=== PATIENT | female | born 1985 | race Caucasian/White ===

== ENCOUNTER 2017-12-09 22:29 | Emergency (ER) | payer OTHER, SELFPAY ==
[2017-12-09 22:33] VITALS: BMI 15.4
[2017-12-09 22:36] VITALS: BP 105/72; PULSE 91; RESP 18; TEMP 36.9; O2SAT 98; BMI 15.4
--- NOTE | 2017-12-09 22:44 | XR_ITS ---
XR chest 2V HISTORY: Chest pain ITS.REASON: cp ORDERING PHYSICIAN: Scottie Thompson MD PATIENT AGE: 32 years COMPARISON: 02/09/2008 FINDINGS: The cardiomediastinal silhouette and pulmonary vascularity are within normal limits. The lungs are clear without infiltrates, suspicious nodules, or pleural effusions. No acute bony abnormalities. IMPRESSION: Negative chest, no acute finding
[2017-12-09 22:52] LABS: Basophils # 0.1 K/mm3 (0-0.2); Basophils % 0.6 % (0.1-2.0); Eosinophils # 0.2 K/mm3 (0.0-0.4); Eosinophils % 1.9 % (0.1-12.0); Hematocrit 45.9 % (37.0-47.0); Hemoglobin 14.9 g/dL (12.2-16.2); Lymphocytes # 3.1 K/mm3 (0.7-4.5); Lymphocytes % 29.6 K/mm3 (10-50); Mean Corpuscular HGB Conc 32.6 g/dL (31.8-35.4); Mean Corpuscular Hemoglobin 32.3 pg (27.0-31.2); Mean Corpuscular Volume 99.1 fl (81-99); Mean Platelet Volume 8.2 fl (7.4-10.4); Monocytes # 0.5 K/mm3 (0.1-1.0); Monocytes % 4.5 % (1.7-9.3); Neutrophils # 6.7 K/mm3 (1.8-7.8); Neutrophils % 63.5 % (37.0-80.0); Platelet Count 207 K/mm3 (142-424); Red Blood Count 4.63 M/mm3 (4.20-5.40); Red Cell Distribution Width 11.8 % (11.5-17.5); White Blood Count 10.6 K/mm3 (4.8-10.8)
[2017-12-09 23:13] LABS: Alanine Aminotransferase 26 U/L (12-78); Albumin/Globulin Ratio 1.2 (1.1-1.8); Alkaline Phosphatase 54 U/L (46-116); Anion Gap 12.1 mEq/L (5-15); Aspartate Amino Transferase 9 U/L (15-37); Bilirubin,Total 0.2 mg/dL (0.2-1.0); Blood Urea Nitrogen 5 mg/dL (7-18); Calcium 8.4 mg/dL (8.5-10.1); Carbon Dioxide 27 mmol/L (21.0-32.0); Chloride 103 mmol/L (98-107); Creatine Kinase 60 U/L (26-192); Creatinine Clearance Estimated 78 mL/min (0-300); Creatinine,Serum 0.67 mg/dL (0.55-1.02); Estimated Glomerular Filt Rate 102 ml/min (>60); GFR (African American) 123 ML/MIN (>60); Globulin 3.4 gm/dl (1.3-3.2); Glucose 99 mg/dL (74-106); Potassium 3.1 mmoL/L (3.5-5.1); Sodium 139 mmol/L (136-145); Total Protein,Serum 7.4 gm/dL (6.4-8.2); Troponin I < 0.02 ng/ml (0.00-0.06)
[2017-12-09 23:14] LABS: CKMB Relative Index 0.8 U/L (0-4.0); Creatine Kinase MB < 0.5 mg/ml (0.0-3.6)
--- NOTE | 2017-12-09 23:38 | [facility]H.EDCP ---
ED Disposition Clinical Impression: Chest pain Qualifiers: Chest pain type: unspecified Qualified Code(s): R07.9 - Chest pain, unspecified Disposition: Home, Self-Care Condition on Discharge: Good Instructions: DI for Atypical Chest Pain Additional Instructions: see pcp for follow up Referrals: Scottie Thompson MD [Primary Care Provider] - - Critical Care Critical Care Time: No Attestation: On 12/09/17, the high probability of a clinically significant, sudden or life threatening deterioration of the following system(s) required my full and direct attention, intervention and personal management. The time I documented below is in addition to time spent performing reported procedures but includes the following listed in this critical care notation. Medical Decision Making - Medical Records Medical records reviewed: Yes: I reviewed the patient's medical records. Vital Signs: 12/09/17 22:36 Temperature 98.4 F Temperature Source Oral Pulse Rate [Right Radial] 91 H Respiratory Rate 18 Blood Pressure [Right Arm] 105/72 Blood Pressure Mean [Right Arm] 83 Blood Pressure Source [Right Arm] Automatic Cuff Blood Pressure Position [Right Arm] Supine 02 Sat by Pulse Oximetry 98 Oxygen Delivery Method Room Air - Lab Data Lab results reviewed: Yes: I reviewed the patient's lab results. Lab Results 12/09/17 22:30: WBC 10.6, RBC 4.63, Hgb 14.9, Hct 45.9, MCV 99.1 H, MCH 32.3 H, MCHC 32.6, RDW 11.8, Plt Count 207, MPV 8.2, Neut % (Auto) 63.5, Lymph % (Auto) 29.6, Daniels % (Auto) 4.5, Eos % (Auto) 1.9, Baso % (Auto) 0.6, Neut # (Auto) 6.7, Lymph # (Auto) 3.1, Daniels # (Auto) 0.5, Eos # (Auto) 0.2, Baso # (Auto) 0.1 12/09/17 22:30: Sodium 139, Potassium 3.1 L, Chloride 103, Carbon Dioxide 27, Anion Gap 12.1, BUN 5 L, Creatinine 0.67, Estimated Creat Clear 78, Estimated GFR 102, Est GFR ( Amer) 123, Glucose 99, Calcium 8.4 L, Total Bilirubin 0.2, AST 9 L, ALT 26, Alkaline Phosphatase 54, Total Creatine Kinase 60, CK-MB (CK-2) < 0.5, CK-MB (CK-2) Rel Index 0.8, Troponin I < 0.02, Total Protein 7.4, Albumin 4.0, Globulin 3.4 H, Albumin/Globulin Ratio 1.2 Result diagrams: 12/09/17 22:30 12/09/17 22:30 Orders (Tests/Meds): ORDERS Category Date Time Status CXR 2 view (NOT portable) [XR chest 2V] Stat Exams 12/09/17 22:44 Taken XR chest portable Stat Exams 12/09/17 22:34 Stop Req ECG Request by /Camacho Stat Y 12/09/17 22:34 Ordered - Radiology Data #1 Image(s): Chest Image Reviewed: Yes I reviewed the patient's radiology image Preliminary Findings: Normal/NAD - ECG Data Tracing #1 I reviewed this ECG and interpreted as documented below: Normal Sinus Rhythm: Yes Ischemic changes: non-specific ST-T wave changes - Jorge Inquiry Pt receiving controlled substance: No Chest Pain HPI - General Chief Complaint: Chest Pain Stated Complaint: chest pain Time Seen by Provider: 12/09/17 23:38 Mode of Arrival: EMS Source of Information: Patient, EMS, Medical Record Limitations: No Limitations Description of Symptoms (Recalled from ER Triage Doc. by RN): Pt report she was arguing with her sister and became lightheaded and started experiencing a stabbing chest pain - History of Present Illness HPI narrative: after emotional upset had chest pain MD complaint: chest pain Onset (ago): hour(s) Duration: now resolved Activity at onset: emotional stress event Pain location: substernal Severity: moderate - Related Data Home Medications Medication Instructions Recorded Confirmed Varenicline Tartrate [Chantix] 0.5 mg PO BID 12/09/17 12/09/17 buPROPion HCl [Wellbutrin 75mg 75 mg PO DAILY 12/09/17 12/09/17 Tablet] clonazePAM [Klonopin] 0.5 mg PO BID 12/09/17 12/09/17 Allergies Allergy/AdvReac Type Severity Reaction Status Date / Time codeine [CODEINE] Allergy Mild Verified 12/09/17 22:47 [facility] History I have reviewed the patient's past medical history: Yes Medical
--- NOTE | 2017-12-09 23:42 | ED_ITS ---
ED Disposition Clinical Impression: Chest pain Qualifiers: Chest pain type: unspecified Qualified Code(s): R07.9 - Chest pain, unspecified Disposition: Home, Self-Care Condition on Discharge: Good Instructions: DI for Atypical Chest Pain Additional Instructions: see pcp for follow up Referrals: Scottie Thompson MD [Primary Care Provider] - - Critical Care Critical Care Time: No Attestation: On 12/09/17, the high probability of a clinically significant, sudden or life threatening deterioration of the following system(s) required my full and direct attention, intervention and personal management. The time I documented below is in addition to time spent performing reported procedures but includes the following listed in this critical care notation. Medical Decision Making - Medical Records Medical records reviewed: Yes: I reviewed the patient's medical records. Vital Signs: 12/09/17 22:36 Temperature 98.4 F Temperature Source Oral Pulse Rate [Right Radial] 91 H Respiratory Rate 18 Blood Pressure [Right Arm] 105/72 Blood Pressure Mean [Right Arm] 83 Blood Pressure Source [Right Arm] Automatic Cuff Blood Pressure Position [Right Arm] Supine 02 Sat by Pulse Oximetry 98 Oxygen Delivery Method Room Air - Lab Data Lab results reviewed: Yes: I reviewed the patient's lab results. Lab Results 12/09/17 22:30: WBC 10.6, RBC 4.63, Hgb 14.9, Hct 45.9, MCV 99.1 H, MCH 32.3 H, MCHC 32.6, RDW 11.8, Plt Count 207, MPV 8.2, Neut % (Auto) 63.5, Lymph % (Auto) 29.6, Todd % (Auto) 4.5, Eos % (Auto) 1.9, Baso % (Auto) 0.6, Neut # (Auto) 6.7 , Lymph # (Auto) 3.1, Todd # (Auto) 0.5, Eos # (Auto) 0.2, Baso # (Auto) 0.1 12/09/17 22:30: Sodium 139, Potassium 3.1 L, Chloride 103, Carbon Dioxide 27, Anion Gap 12.1, BUN 5 L, Creatinine 0.67, Estimated Creat Clear 78, Estimated GFR 102, Est GFR ( Amer) 123, Glucose 99, Calcium 8.4 L, Total Bilirubin 0.2, AST 9 L, ALT 26, Alkaline Phosphatase 54, Total Creatine Kinase 60, CK-MB ( CK-2) < 0.5, CK-MB (CK-2) Rel Index 0.8, Troponin I < 0.02, Total Protein 7.4, Albumin 4.0, Globulin 3.4 H, Albumin/Globulin Ratio 1.2 Result diagrams: 12/09/17 22:30 12/09/17 22:30 Orders (Tests/Meds): ORDERS Category Date Time Status CXR 2 view (NOT portable) [XR chest 2V] Stat Exams 12/09/17 22:44 Taken XR chest portable Stat Exams 12/09/17 22:34 Stop Req ECG Request by /Camacho Stat Y 12/09/17 22:34 Ordered - Radiology Data #1 Image(s): Chest Image Reviewed: Yes I reviewed the patient's radiology image Preliminary Findings: Normal/NAD - ECG Data Tracing #1 I reviewed this ECG and interpreted as documented below: Normal Sinus Rhythm: Yes Ischemic changes: non-specific ST-T wave changes - Jorge Inquiry Pt receiving controlled substance: No Chest Pain HPI - General Chief Complaint: Chest Pain Stated Complaint: chest pain Time Seen by Provider: 12/09/17 23:38 Mode of Arrival: EMS Source of Information: Patient, EMS, Medical Record Limitations: No Limitations Description of Symptoms (Recalled from ER Triage Doc. by RN): Pt report she was arguing with her sister and became lightheaded and started experiencing a stabbing chest pain - History of Present Illness HPI narrative: after emotional upset had chest pain MD complaint: chest pain Onset (ago): hour(s) Duration: now resolved
[2017-12-09 23:50] VITALS: BP 110/70; PULSE 90; RESP 20; TEMP 36.8; O2SAT 97
== END 2017-12-09 23:50 | disposition home or self-care (01) ==
PROVIDERS: Emergency Provider Emergency Medicine; Family Provider Emergency Medicine; PCP Emergency Medicine
DX: R07.9 Chest pain, unspecified (principal); F41.8 Other specified anxiety disorders; F17.210 Nicotine dependence, cigarettes, uncomplicated
CPT/HCPCS: 71046; 80053; 82550; 82553; 84484; 85025; 93005; 99282

== ENCOUNTER → 2019-07-31 14:36 | Outpatient (CLI) | payer OTHER, SELFPAY ==
[2019-07-31 16:04] LABS: HCG,Quantitative 900 mIU/mL
== END ==
PROVIDERS: Visit Provider Nurse Practitioner Obstetrics & Gynecology
DX: Z34.90 Encounter for supervision of normal pregnancy, unspecified, unspecified trimester (principal)
CPT/HCPCS: 36415; 84702

== ENCOUNTER → 2019-09-06 10:35 | Outpatient (CLI) | payer OTHER, SELFPAY ==
--- NOTE | 2019-09-06 10:38 | US_ITS ---
PROCEDURE: US OB TRANSVAGINAL CLINICAL INDICATION: US OB Dates Follow-up subchorionic hemorrhage. COMPARISON: US OB TRANSVAGINAL from 08/27/2019 FINDINGS: An intrauterine gestational sac is present with a pole with a crown-rump length of 2.83 cm correlating to gestational age of 9 weeks 5 days. heart tones are present with an FHR of 165 bpm. Yolk sac is noted. The amnion and chorion of not yet fused. Adnexa are unremarkable. There is a persistent subchorionic area of decreased echogenicity and may represent a small subchorionic hemorrhage. IMPRESSION: Live IUP at 9 weeks 5 days with small subchorionic hemorrhage noted as described. Estimated due date by Ultrasound is 04/05/2020 Dictated by: Sher Burden MD 09/06/2019 12:58 Electronically signed by Sher Burden MD in [place] 09/06/2019 12:58
== END ==
PROVIDERS: PCP Emergency Medicine; Visit Provider Nurse Practitioner Obstetrics & Gynecology
DX: O26.841 Uterine size-date discrepancy, first trimester (principal)
CPT/HCPCS: 76817

== ENCOUNTER → 2019-09-06 11:36 | Outpatient (CLI) | payer OTHER, SELFPAY ==
[2019-09-06 11:54] LABS: Basophils % 0.5 % (0.1-2.0); Eosinophils # 0.1 K/mm3 (0.0-0.4); Eosinophils % 1.4 % (0.1-12.0); Hematocrit 41.4 % (37.0-47.0); Lymphocytes # 2.2 K/mm3 (0.7-4.5); Lymphocytes % 27.8 % (10-50); Mean Corpuscular HGB Conc 31.4 g/dL (31.8-35.4); Mean Corpuscular Hemoglobin 30.7 pg (27.0-31.2); Mean Corpuscular Volume 97.9 fl (81-99); Mean Platelet Volume 8.2 fl (7.4-10.4); Monocytes # 0.4 K/mm3 (0.1-1.0); Monocytes % 4.6 % (1.7-9.3); Neutrophils # 5.2 K/mm3 (1.8-7.8); Neutrophils % 65.7 % (37.0-80.0); Platelet Count 256 K/mm3 (142-424); Red Blood Count 4.22 M/mm3 (4.20-5.40); White Blood Count 7.9 K/mm3 (4.8-10.8)
[2019-09-07 21:12] LABS: HIV Screen 4th Generation wRfx Non Reactive (Non Reactive); Hepatitis B Surface Antigen Negative (Negative); Hepatitis C Antibody <0.1 s/co ratio (0.0-0.9); Rapid Plasma Reagin Ab Titer Non Reactive (NonRea<1:1)
== END ==
PROVIDERS: Visit Provider Nurse Practitioner Obstetrics & Gynecology
DX: Z34.90 Encounter for supervision of normal pregnancy, unspecified, unspecified trimester (principal); Z3A.01 Less than 8 weeks gestation of pregnancy
CPT/HCPCS: 36415; 85025; 86592; 86703; 86762; 86850; 87340; 87380; G0432

== ENCOUNTER → 2019-11-21 12:56 | Outpatient (CLI) | payer OTHER, SELFPAY ==
--- NOTE | 2019-11-21 13:06 | US_ITS ---
PROCEDURE: US OB /MATERNAL DETAIL CLINICAL INDICATION: 20 wk. ob/us COMPARISON: US OB TRANSVAGINAL from 09/06/2019 FINDINGS: There is a single live fetus present which is in breech presentation. heart and body motion noted. Cervix is closed and measures 3 cm. The placenta fundal and wraparound and grade 1 Complete survey performed and was unremarkable on the submitted images as in PACS. No discrete anomalies identified on survey imaging by technologist. Active fetus. Three-vessel cord with satisfactory umbilical cord insertion. 4- chamber heart noted. Survey of brain & ventricles Unremarkable. Face and neck survey unremarkable. Diaphragm and chest views unremarkable. Abdomen: Both kidneys noted and unremarkable. Stomach noted and satisfactory. Spine: Survey of the spine satisfactory with no anomalies identified nor imaged. Both arms and legs noted. Amniotic Fluid: Adequate. Maternal adnexa: No significant findings. Measurements: Average ultrasound age 20weeks. Gestational Age 20 weeks 4 days Estimated due date by ultrasound age 0604/09/2020. Estimated weight 314g BPD = 20weeks 2days OFD = 20 weeks 3 days HC = 19weeks 5days AC = 20weeks 1day FL = 19weeks 4days Growth Percentile= 12 percent% Heart Rate = 142bpm Cerebellum = 21weeks 1day Humerus = 19weeks 5days HC/AC is 1.14 CI is 0.78 FL/BPD is 0.65 FL/AC is 0.21 IMPRESSION: Live IUP with an average ultrasound age of 20 weeks and 0 days. All parameters correlate with no obvious anomalies. Please see above for detail Dictated by: Sher Burden MD 11/21/2019 17:19 Electronically signed by Sher Burden MD in [place] 11/21/2019 17:19
== END ==
PROVIDERS: PCP Emergency Medicine; Visit Provider Nurse Practitioner Obstetrics & Gynecology
DX: Z34.90 Encounter for supervision of normal pregnancy, unspecified, unspecified trimester (principal)
CPT/HCPCS: 76805; 76811

== ENCOUNTER → 2020-02-07 09:00 | Outpatient (CLI) | payer OTHER, SELFPAY ==
[2020-02-07 10:33] LABS: Glucose,Fasting 69 mg/dl (74-100)
[2020-02-07 10:48] LABS: Glucose 1 Hour 114 mg/dL (74-100)
== END ==
PROVIDERS: Visit Provider Nurse Practitioner Obstetrics & Gynecology
DX: Z34.90 Encounter for supervision of normal pregnancy, unspecified, unspecified trimester (principal)
CPT/HCPCS: 36415; 82951

== ENCOUNTER → 2020-02-28 14:10 | Outpatient (CLI) | payer OTHER, SELFPAY ==
--- NOTE | 2020-02-28 14:13 | US_ITS ---
PROCEDURE: US OB FOLLOW UP CLINICAL INDICATION: sga Small for gestational age COMPARISON: US OB /MATERNAL DETAIL from 11/21/2019 FINDINGS: There is a single live fetus present which is in cephalic presentation. The placenta is posterior and high in implantation and is grade 3. No evidence of previa. The cervix is closed and measures 3 cm transabdominal. Average ultrasound age is 32 weeks 4 days with estimated due date by ultrasound 04/20/2020. Estimated weight is 1917 g which is 3 percentile indicating intrauterine growth restriction. The following parameters are obtained: BPD 33 weeks 0 days, OFD 33 weeks 0 days, HC 32 weeks 5 days, AC 31 weeks 4 days, FL 33 weeks 0 days. All parameters correlate. No obvious anomalies demonstrated. STELLA is normal at 14 cm. Biophysical profile is 8 of 8 IMPRESSION: Live IUP at 32 weeks 4 days with an estimated weight 1917 g which is 3 percentile indicating intrauterine growth restriction/small for gestational age. All parameters correlate with no obvious anomalies. Normal amniotic fluid index of 14 cm with biophysical profile 8 of 8. Posterior grade 3 placenta Dictated by: Sher Burden MD 02/28/2020 17:01 Electronically signed by Sher Burden MD in [place] 02/28/2020 17:01
== END ==
PROVIDERS: PCP Emergency Medicine; Visit Provider Nurse Practitioner Obstetrics & Gynecology
DX: O36.5990 Maternal care for other known or suspected poor fetal growth, unspecified trimester, not applicable or unspecified (principal)
CPT/HCPCS: 76816; 76819

== ENCOUNTER → 2020-03-06 17:05 | Outpatient (CLI) | payer OTHER, SELFPAY | PROVIDERS: Visit Provider Nurse Practitioner Obstetrics & Gynecology | DX: Z34.90 Encounter for supervision of normal pregnancy, unspecified, unspecified trimester (principal) | CPT/HCPCS: 86403 ==

== ENCOUNTER 2020-03-15 05:36 | Inpatient (IN) | payer OTHER, SELFPAY ==
[2020-03-15 05:53] VITALS: BMI 20.5
[2020-03-15 06:00] VITALS: BP 122/78; PULSE 62; RESP 18; TEMP 36.7; O2SAT 100; BMI 20.5
[2020-03-15 06:29] LABS: Microscopic, Urine URINE MICROSCOPIC (MICROSCOPIC)
[2020-03-15 06:38] LABS: Appearance,Urine CLEAR (Clear); Bilirubin,Urine Negative (Negative); Blood, Urine TRACE-I (Negative); Color,Urine YELLOW (Yellow); Glucose,Urine (UA) Negative (Negative); Ketones,Urine Negative (Negative); Leukocyte Esterase,Urine Negative (Negative); Nitrate,Urine Negative (Negative); PH,Urine 6.5 (5.0-8.5); Protein,Urine 1+ (Negative); Specific Gravity, Urine 1.025 (1.005-1.030); Urobilinogen,Urine 0.2 EU/dl (0.2)
[2020-03-15 06:44] LABS: Basophils % 0.3 % (0.1-2.0); Eosinophils # 0.1 K/mm3 (0.0-0.4); Eosinophils % 1.3 % (0.1-12.0); Hematocrit 39.3 % (37.0-47.0); Hemoglobin 13.3 g/dL (12.2-16.2); Lymphocytes # 3.3 K/mm3 (0.7-4.5); Lymphocytes % 30.3 % (10-50); Mean Corpuscular HGB Conc 33.8 g/dL (31.8-35.4); Mean Corpuscular Hemoglobin 33.3 pg (27.0-31.2); Mean Corpuscular Volume 98.6 fl (81-99); Mean Platelet Volume 9.6 fl (7.4-10.4); Monocytes # 0.5 K/mm3 (0.1-1.0); Monocytes % 4.9 % (1.7-9.3); Neutrophils # 6.9 K/mm3 (1.8-7.8); Neutrophils % 63.2 % (37.0-80.0); Platelet Count 234 K/mm3 (142-424); Red Blood Count 3.99 M/mm3 (4.20-5.40); Red Cell Distribution Width 13.1 % (11.5-17.5)
[2020-03-15 06:53] LABS: Amphetamine/Metha Screen,Urine Negative ng/ml (<1000)
[2020-03-15 06:54] LABS: Barbiturates Screen,Urine Negative ng/ml (<200)
[2020-03-15 06:55] LABS: Benzodiazepines Screen,Urine Negative ng/ml (<200); Cannabinoid Screen,Urine Negative ng/ml (<50)
[2020-03-15 06:56] LABS: Cocaine Screen,Urine Negative ng/ml (<300); Methadone Screen,Urine Negative ng/ml (<300)
[2020-03-15 06:57] LABS: Opiate Screen,Urine Negative ng/ml (<300)
[2020-03-15 06:58] LABS: Phencyclidine Screen,Urine Negative ng/ml (<25)
[2020-03-15 07:00] LABS: Coronavirus 19 IgG Antibody Negative (Negative); Coronavirus 19 IgM Antibody Negative (Negative)
[2020-03-15 07:12] LABS: Bacteria,Urine 3+ /lpf
[2020-03-15 07:26] LABS: Chloride 109 mmol/L (98-107)
[2020-03-15 07:27] LABS: Potassium 3.9 mmoL/L (3.5-5.1); Sodium 135 mmol/L (136-145)
[2020-03-15 07:29] LABS: Blood Urea Nitrogen 11 mg/dl (7-17)
[2020-03-15 07:30] LABS: Anion Gap 10.9 mEq/L (5-15); Calcium 8.4 mg/dl (8.4-10.2); Carbon Dioxide 19 mmol/L (22.0-30.0); Creatinine Clearance Estimated 114 mL/min (50-200); Estimated Glomerular Filt Rate 114 ml/min (>60); GFR (African American) 138 ML/MIN (>60); Glucose 82 mg/dl (74-100)
[2020-03-15 08:00] VITALS: BP 123/81; PULSE 65; RESP 18; TEMP 36.7; O2SAT 98
--- NOTE | 2020-03-15 09:47 | HMH.LABNOT ---
Labor Note - Subjective: Date: 03/15/20 Time: 08:30 regular contraction - Objective: NST:: Reactive Contractions:: every 2-3 minutes Cervical Dilation:: 2 Effacement:: 75% Station: 0 Membranes: artificially ruptured Comment:: I ruptured membranes and there was clear fluid. - Fetus: Monitoring?: Yes monitoring type:: External - Assessment: Labor progressing?: Yes Cephalopelvic disproportion?: No Patient Problems: All Active Problems (Acute) Pelvic pain (Acute) Right lower quadrant abdominal pain affecting (Acute) Threatened miscarriage (Acute) - Plan: Anesthesia for epidural?: No Continue to labor down?: Yes Plan for ?: No Continue to monitor?: Yes Start pushing?: No Comment:: She has a very small for gestational age infant. She is 37 weeks. As result of that we have elected to deliver her. The fluid was also marginal.
--- NOTE | 2020-03-15 09:51 | HMH.OBAPHP ---
OB - H&P: HPI Antepartum - History of Present Illness Chief complaint: She has severe IUGR. History of present illness: She is a 34-year-old 6 para 4 aborta 1 who was 37 weeks gestational age. She has a very small for gestational age with marginal fluid. She is a and 8 years ago had a for breech presentation. She requested vaginal delivery. We discussed the risks and benefits of . She is a smoker. She has had small babies in the past. I did an ultrasound and the baby was less than the fifth centile with an amniotic fluid index of only 6. As a result of that we offered her delivery. - History of Present Criteria for establishing EDC:: LMP confirmed by 1st trimester US care: good care Ultrasounds: normal 1st trimester US, normal mid trimester US Obstetrical complications: growth restriction Medical complications: none [facility] History I have reviewed the patient's past medical history: Yes Medical History: Reports:: Anxiety, Depression Denies:: Cancer, Diabetes Mellitus Type 1, Diabetes Mellitus Type 2, MRSA *Have you ever received a pneumonia vaccine?: No *Have you received a flu vaccine this season?: No Other Surgeries: Yes: , Dilation and Curettage Amputation: No Fractures: No - *Social History Smoking Status: Current every day smoker Tobacco Type: cigarettes # Packs/Day (cigarettes): 1 Alcohol Intake: never Substance Use Type: denies use *Occupational Status:: unemployed Housing: house Household Members: spouse, children *Travel in the last 8 weeks: None - Psychiatric History Pschychiatric History:: Reports:: Anxiety, Depression Family Hx:: Cancer, Diabetes, Asthma Para: 4 Review of Systems - Review of Systems Review of systems:: pertinent systems reviewed and negative unless documented below Meds Home Medications Medication Instructions Recorded Confirmed Type prenat.vits,mkie,qgy-exaa-monsi 1 tab PO DAILY 09/04/19 03/15/20 History RX: buPROPion HCL [Bupropion Xl] 150 mg PO TID 03/15/20 03/15/20 History Allergies Allergy/AdvReac Type Severity Reaction Status Date / Time codeine [CODEINE] Allergy Mild Verified 03/13/20 09:50 OB - H&P: Exam - Physical Exam Vital signs: Temp Pulse Resp BP Pulse Ox 98.0 F 65 18 123/81 98 03/15/20 08:00 03/15/20 08:00 03/15/20 08:00 03/15/20 08:00 03/15/20 08:00 - Constitutional no acute distress - Routine HEENT Exam Head: Present: normocephalic Eye: Present: EOMI, PERRL ENT: Present: mucous membranes moist - Routine Neck Exam Present: supple, full ROM - Routine Respiratory Exam Absent: accessory muscle use (good air entry bilaterally), respiratory distress, wheezes, crackles - Routine Cardiovascular Exam Present: RRR. Absent: murmur - Routine Abdominal Exam Present: soft, normoactive bowel sounds. Absent: tenderness, distended, guarding - Routine Rectal Exam Patient deferred: visual exam, digital exam - Routine Exam Patient deferred: external exam, groin exam, perineal exam - Routine Extremities Exam Present: full ROM. Absent: cyanosis, edema - Routine Skin Exam Present: intact. Absent: cyanosis - Routine Neurological Exam Present: alert, oriented X3 - Routine Psychiatric Exam Present: normal affect OB - Results - Labs Labs: Short CBC 03/15/20 Range/Units 06:05 WBC 11.0 H (4.8-10.8) K/mm3 Hgb 13.3 (12.2-16.2) g/dL Hct 39.3 (37.0-47.0) % Plt Count 234 (142-424) K/mm3 BMP 03/15/20 06:05 Sodium 135 L Potassium 3.9 Chloride 109 H Carbon Dioxide 19 L BUN 11 Creatinine 0.60 Glucose 82 Calcium 8.4 Urine 03/15/20 Range/Units 06:05 Urine Color Yellow (Yellow) Urine Appearance Clear (Clear) Urine pH 6.5 (5.0-8.5) Ur Specific [place] 1.025 (1.005-1.030) Urine Protein 1+ (Negative) Urine Glucose (UA) Negative (Negative) OB - A/P Antepartum (1) IUGR (
--- NOTE | 2020-03-15 10:51 | HMH.LABNOT ---
Labor Note - Subjective: Date: 03/15/20 Time: 10:51 regular contraction - Objective: NST:: Reactive Contractions:: every 2-3 minutes Effacement:: 100% Station: 0 Membranes: artificially ruptured - Fetus: Monitoring?: Yes monitoring type:: External - Assessment: Labor progressing?: Yes Patient Problems: All Active Problems IUGR (intrauterine growth restriction) affecting care of mother (Acute) Oligohydramnios (Acute) (Acute) Pelvic pain (Acute) Right lower quadrant abdominal pain affecting (Acute) Threatened miscarriage (Acute) - Plan: Anesthesia for epidural?: No Continue to labor down?: Yes Plan for ?: No Continue to monitor?: Yes Start pushing?: No Comment:: She continues to do well. She is progressing. The nonstress test is reactive. She does not have any bleeding. Baby looks good. We will continue on.
--- NOTE | 2020-03-15 12:06 | HMH.LABNOT ---
Labor Note - Subjective: Date: 03/15/20 Time: 12:06 irregular contractions - Objective: NST:: Reactive Contractions:: every 2-3 minutes Cervical Dilation:: 6 Effacement:: 100% Station: +1 Membranes: artificially ruptured - Fetus: Monitoring?: Yes monitoring type:: External - Assessment: Labor progressing?: Yes Cephalopelvic disproportion?: No Patient Problems: All Active Problems IUGR (intrauterine growth restriction) affecting care of mother (Acute) Oligohydramnios (Acute) (Acute) Pelvic pain (Acute) Right lower quadrant abdominal pain affecting (Acute) Threatened miscarriage (Acute) - Plan: Anesthesia for epidural?: No Continue to labor down?: Yes Plan for ?: No Continue to monitor?: Yes Start pushing?: No
--- NOTE | 2020-03-15 12:37 | P.PCN_ITS ---
- Delivery Note Delivery Date:: 03/15/20 Delivery Time:: 12:24 Anesthesia Type: None Was labor medically induced?: Yes Induction method: per pitocin protocol Gestational age (weeks): 37 Infant delivered prior to 39 weeks?: Yes Justification for early elective delivery:: IUGR Gender: Female at 1 minute: 9 at 5 minutes: 9 Delivery Procedure:: She is a 34-year-old 6 para 4 who was 37 weeks gestational age. She has a small for gestational age and when we did an ultrasound a couple days ago it was noted that there was marginal fluid as well. The baby was less than the third centile. Given the fact that the baby was so small and the fact that the fluid was marginal we elected to bring her in for induction of labor at term. She was started on IV oxytocin had her membranes ruptured. She progressed to full dilation and delivered spontaneously a liveborn female child at 12:24 PM in the afternoon of March 15, 2020. On deliver the head the anterior shoulder rapidly delivered followed by the rest of the infant's body atraumatically. The baby was vigorous and crying so we elected to allow the cord to continue to pulsate. After 1 minute the cord was doubly clamped and cut and the infant was handed off to the nurses who assigned Apgars of 9 at 1 and 9 at 5 minutes. We then obtained cord blood as well as cord pH. The pH was 7.32. Shortly after delivery Dr. Bonner was in attendance with the baby. She received IV oxytocin and using gentle traction the cord and countertraction the fundus I was able to easily deliver the placenta intact at 1230. Had a normal three-vessel cord. There were no perineal or vaginal lacerations. She has a positive blood, she is rubella immune and was group B streptococcus negative. Her sap fico architect Dr. Bonner. Estimated blood loss was 200 cc. Placental Delivery Description: Spontaneous
[2020-03-15 12:38] LABS: Cord Blood PH 7.32 (7.35-7.45)
[2020-03-16 06:03] LABS: Hematocrit 35.5 % (37.0-47.0)
[2020-03-16 06:13] LABS: Hemoglobin 11.9 g/dL (12.2-16.2)
--- NOTE | 2020-03-16 10:05 | HMH.ACPN2 ---
Internal Medicine - PN: Subj *Date: 03/16/20 *Time: 10:05 Interval history: She is doing well this morning. She is eating and drinking and ambulating. She is breast-feeding. Her lochia is normal. Exam Vital signs and Labs for Last 24 Hours: Temp Pulse Resp BP Pulse Ox 98.0 F 65 18 123/81 98 03/15/20 08:00 03/15/20 08:00 03/15/20 08:00 03/15/20 08:00 03/15/20 08:00 Laboratory Results - last 24 hr 03/15/20 12:24: Cord ABG pH 7.32 L 03/16/20 05:46: Hgb 11.9 L D, Hct 35.5 L I & O for Last 24 hours: Intake & Output 03/13/20 03/14/20 03/15/20 03/16/20 11:59 11:59 11:59 11:59 Weight 120 lb Microbiology Reports for the Last 24 Hours: Microbiology 03/15/20 06:05 Urine,Clean Catch Urine Culture - Preliminary NO GROWTH AFTER 24 HOURS - Constitutional no acute distress - *Routine HEENT Exam Head: Present: normocephalic Eye: Present: EOMI, PERRL ENT: Present: mucous membranes moist Assessment and Plan (1) IUGR (intrauterine growth restriction) affecting care of mother Current visit: Yes Status: Acute Category: Medical Code(s): O36.5990 - Maternal care for other known or suspected poor growth, unspecified trimester, not applicable or unspecified (2) Oligohydramnios Current visit: Yes Status: Acute Category: Medical Code(s): O41.00X0 - Oligohydramnios, unspecified trimester, not applicable or unspecified - Assessment and plan all Dx Assessment and Plan for all problems:: She is doing well. She is breast-feeding. Her lochia is normal. We will plan to send her home tomorrow.
[2020-03-16 16:00] VITALS: BP 129/59; PULSE 64; RESP 18; TEMP 36.7; O2SAT 99
[2020-03-16 19:43] VITALS: BP 115/70; PULSE 70; RESP 16; TEMP 36.7; O2SAT 98
[2020-03-17 05:11] VITALS: BP 131/86; PULSE 64; RESP 16; TEMP 37.1
[2020-03-17 08:00] VITALS: BP 109/71; PULSE 76; RESP 20; TEMP 36.7; O2SAT 99
--- NOTE | 2020-03-17 11:24 | P.DS_ITS ---
General - General Admission date:: 03/15/20 Discharge date: 03/17/20 HPI HPI: She is a 34-year-old 6 now para 5 aborta 1 who was 37 weeks gestational age. She had a small for gestational age infant and previous section. She was brought in for induction of labor. Hospital Course Hospital Course: She was started on IV oxytocin had her membranes ruptured. She progressed to full dilation and delivered spontaneously a liveborn female child at 12:24 PM in the afternoon of March 15, 2020. The baby weighed 4 pounds 3 ounces and had Apgars of 9 at 1 minute and 9 at 5 minutes. pH was 7.32. She has done well and has remained afebrile throughout her hospitalization. She is eating and drinking and ambulating. She is breast- feeding. Her lochia is normal. There were no perineal or vaginal lacerations. She has a positive blood, she is rubella immune and was group B streptococcus negative. Her marine engineer cpvec is Dr. Bonner. She is discharged home to follow-up with me in approximately 2 weeks time. She will continue with her vitamins and iron. She was given the usual instructions with respect to limiting her activity, driving and sexual activity. Her condition on discharge is stable and improved. Rhogam Administration: Not Indicated Objective Vital signs: Temp Pulse Resp BP Pulse Ox 98.0 F 76 20 109/71 L 99 03/17/20 08:00 03/17/20 08:00 03/17/20 08:00 03/17/20 08:00 03/17/20 08:00 no acute distress - *Routine HEENT Exam Head: Present: normocephalic Eye: Present: EOMI, PERRL ENT: Present: mucous membranes moist DS: Diagnosis - Discharge Diagnosis (1) IUGR (intrauterine growth restriction) affecting care of mother Status: Acute (2) Oligohydramnios Status: Acute (3) , delivered Status: Acute Discharge Plan - Patient Discharge Instructions ACTIVITY: No heavy lifting DIET: continue same diet Additional Instructions: Nothing in the vagina for 6 weeks, and no heavy lifting. Patient Instructions: Depression, Hemorrhage, DI for Labor and Delivery, Vaginal , DI for Pre-eclampsia, [facility] Post Discharge Instructions, Preventing the Spread of Coronavirus Discharge Instructions - Follow up Plan Follow up with: Cornelius Estrada MD [Staff Physician] - Disposition: Home, Self-Senior Living Medications: Home Medications Medication Instructions Recorded Confirmed Type prenat.vits,mike,[id number] 1 tab PO DAILY 09/04/19 03/15/20 History buPROPion HCL [Bupropion Xl] 150 mg PO DAILY 03/15/20 03/15/20 History Oxycodone HCl/Acetaminophen 1 tab PO Q6H PRN #14 tablet 03/17/20 Rx [Percocet 5/325mg tablet] Prescriptions/Medication Reconciliation: New Oxycodone HCl/Acetaminophen [Percocet 5/325mg tablet] 1 tab PO Q6H PRN #14 tablet PRN Reason: Severe Pain Continued prenat.vits,mike,[id number] 1 tab PO DAILY buPROPion HCL [Bupropion Xl] 150 mg PO DAILY - Problem Reconciliation Problems Reviewed?: Yes
== END 2020-03-17 11:58 | disposition home or self-care (01) | DRG 806 ==
PROVIDERS: Admitting Provider Nurse Practitioner Obstetrics & Gynecology; PCP Emergency Medicine; Visit Provider Nurse Practitioner Obstetrics & Gynecology
DX: O36.5930 Maternal care for other known or suspected poor fetal growth, third trimester, not applicable or unspecified (principal); O41.03X0 Oligohydramnios, third trimester, not applicable or unspecified; Z37.0 Single live birth; Z3A.37 37 weeks gestation of pregnancy
CPT/HCPCS: 59612; 59025; 80048; 80305; 81001; 82800; 85014; 85018; 85025; 86328; 86850; 87086; 88307

== ENCOUNTER → 2021-07-30 18:28 | Outpatient (CLI) | payer OTHER, SELFPAY ==
[2021-07-30 19:30] LABS: Amphetamine/Metha Screen,Urine Negative ng/ml (<1000); Barbiturates Screen,Urine Negative ng/ml (<200)
[2021-07-30 19:31] LABS: Benzodiazepines Screen,Urine Negative ng/ml (<200); Cannabinoid Screen,Urine Negative ng/ml (<50)
[2021-07-30 19:32] LABS: Cocaine Screen,Urine Negative ng/ml (<300)
[2021-07-30 19:33] LABS: Methadone Screen,Urine Negative ng/ml (<300); Opiate Screen,Urine Negative ng/ml (<300)
[2021-07-30 19:34] LABS: Phencyclidine Screen,Urine Negative ng/ml (<25)
== END ==
PROVIDERS: Visit Provider Emergency Medicine
DX: Z79.899 Other long term (current) drug therapy (principal)
CPT/HCPCS: 80305

== ENCOUNTER 2022-03-15 20:29 | Emergency (ER) | payer OTHER, SELFPAY ==
[2022-03-15 20:32] VITALS: BP 118/85; PULSE 76; RESP 17; TEMP 36.7; O2SAT 99; BMI 18.3
--- NOTE | 2022-03-15 20:39 | XR_ITS ---
PROCEDURE INFORMATION: Exam: XR Chest Exam date and time: 03/15/2022 9:36 PM Age: 36 years old Clinical indication: Other: Stroke symptoms, altered speech, shaking; Additional info: Alteration in speech pattern TECHNIQUE: Imaging protocol: XR of the chest. Views: 1 view. COMPARISON: CR CXR2V XR chest 2V 12/09/2017 10:58 PM FINDINGS: Lungs: Unremarkable. No consolidation. Pleural spaces: Unremarkable. No pleural effusion. No pneumothorax. Heart/Mediastinum: Unremarkable. No cardiomegaly. Bones/joints: Unremarkable. IMPRESSION: No acute findings.
--- NOTE | 2022-03-15 20:39 | CT_ITS ---
PROCEDURE INFORMATION: Exam: CT Head Without Contrast Exam date and time: 03/15/2022 8:52 PM Age: 36 years old Clinical indication: Stroke-like symptoms; Additional info: Headache shaking TECHNIQUE: Imaging protocol: Computed tomography of the head without contrast. Radiation optimization: All CT scans at this facility use at least one of these dose optimization techniques: automated exposure control; mA and/or kV adjustment per patient size (includes targeted exams where dose is matched to clinical indication); or iterative reconstruction. Other technique: STROKE PROTOCOL was implemented. COMPARISON: HDWO CT HEAD W/O CONTRAST 05/25/2015 7:09 PM FINDINGS: Brain: There is no evidence of infarct, cohen-white matter differentiation is preserved. There is no hemorrhage or extra-axial collection. There is no mass. No evidence of subarachnoid hemorrhage. No evidence of cerebral edema. There is no hydrocephalus. Cerebral ventricles: No ventriculomegaly. Paranasal sinuses: Visualized sinuses are unremarkable. No fluid levels. Mastoid air cells: Visualized mastoid air cells are well aerated. Bones/joints: Unremarkable. No acute fracture. Soft tissues: Unremarkable. IMPRESSION: No intracranial lesion or injury ASSESSMENT: ASPECTS ([facility]aurice Stroke Program Early CT Score) is 10.
[2022-03-15 20:47] LABS: Basophils # 0.3 K/mm3 (0-0.2); Basophils % 3.2 % (0.1-2.0); Eosinophils # 0.2 K/mm3 (0.0-0.4); Eosinophils % 2.7 % (0.1-12.0); Hematocrit 44.8 % (37.0-47.0); Lymphocytes # 3.8 K/mm3 (0.7-4.5); Lymphocytes % 43.5 % (10-50); Mean Corpuscular HGB Conc 33.5 g/dL (31.8-35.4); Mean Corpuscular Volume 98.5 fl (81-99); Mean Platelet Volume 8.7 fl (7.4-10.4); Monocytes # 0.4 K/mm3 (0.1-1.0); Monocytes % 4.8 % (1.7-9.3); Neutrophils % 45.8 % (37.0-80.0); Platelet Count 245 K/mm3 (142-424); Red Blood Count 4.55 M/mm3 (4.20-5.40); White Blood Count 8.8 K/mm3 (4.8-10.8)
[2022-03-15 20:48] LABS: Chloride 102 mmol/L (98-107); Potassium 3.3 mmoL/L (3.5-5.1); Sodium 137 mmol/L (136-145)
[2022-03-15 20:50] LABS: Blood Urea Nitrogen 7 mg/dl (7-17); Creatinine Clearance Estimated 93 mL/min (50-200); Estimated Glomerular Filt Rate 113 ml/min (>60); GFR (African American) 137 ML/MIN (>60)
[2022-03-15 20:51] LABS: Alanine Aminotransferase 16 U/L (12-78); Albumin Level 4.5 g/dl (3.5-5.0); Albumin/Globulin Ratio 1.6 (1.1-1.8); Alkaline Phosphatase 47 U/L (38-126); Anion Gap 11.3 mEq/L (5-15); Aspartate Amino Transferase 27 U/L (14-36); Bilirubin,Total 0.3 mg/dl (0.2-1.3); Calcium 9.2 mg/dl (8.4-10.2); Carbon Dioxide 27 mmol/L (22.0-30.0); Globulin 2.9 g/dL (1.3-3.2); Glucose 135 mg/dl (74-100); Total Protein,Serum 7.4 g/dl (6.3-8.2)
[2022-03-15 21:01] VITALS: BP 115/74; PULSE 77; RESP 14; O2SAT 98
[2022-03-15 21:11] LABS: Microscopic, Urine URINE MICROSCOPIC (MICROSCOPIC)
--- NOTE | 2022-03-15 21:12 | PC.NURSE ---
received notification of negative head ct per vrad.
[2022-03-15 21:16] LABS: Appearance,Urine CLEAR (Clear); Bilirubin,Urine Negative (Negative); Blood, Urine Negative (Negative); Color,Urine YELLOW (Yellow); Glucose,Urine (UA) Negative (Negative); Ketones,Urine Negative (Negative); Leukocyte Esterase,Urine TRACE (Negative); Nitrate,Urine Negative (Negative); PH,Urine 6.5 (5.0-8.5); Protein,Urine Negative (Negative); Specific Gravity, Urine <= 1.005 (1.005-1.030); Urobilinogen,Urine 0.2 EU/dl (0.2)
[2022-03-15 21:19] LABS: Urine Pregnancy, HCG Qual. Negative (Negative)
--- NOTE | 2022-03-15 21:20 | HMH.EDHA ---
ED Disposition Clinical Impression: Headache Qualifiers: Headache type: unspecified Headache chronicity pattern: acute headache Intractability: not intractable Qualified Code(s): R51.9 - Headache, unspecified Speech abnormality Qualifiers: Speech disturbance type: unspecified speech disturbance Qualified Code(s): R47.9 - Unspecified speech disturbances Disposition: Home, Self-Care Condition on Discharge: Good Instructions: DI for Headache Additional Instructions: see pcp in am for close follow up Referrals: Scottie Thompson MD [Primary Care Provider] - - Critical Care Critical Care Time: No Attestation: On 03/15/22, the high probability of a clinically significant, sudden or life threatening deterioration of the following system(s) required my full and direct attention, intervention and personal management. The time I documented below is in addition to time spent performing reported procedures but includes the following listed in this critical care notation. Medical Decision Making - Medical Records Medical records reviewed: Yes: I reviewed the patient's medical records. - Jorge Inquiry Pt receiving controlled substance: No Vital Signs: 03/15/22 20:32 03/15/22 21:01 03/15/22 21:33 Temperature 98.0 F Temperature Source Oral Pulse Rate 77 79 Pulse Rate [Right Brachial] 76 Respiratory Rate 17 14 16 Blood Pressure 115/74 105/66 L Blood Pressure [Right Arm] 118/85 Blood Pressure Mean [Right Arm] 96 Blood Pressure Source [Right Arm] Automatic Cuff Blood Pressure Position [Right Arm] Sitting 02 Sat by Pulse Oximetry 99 98 97 Oxygen Delivery Method Room Air Room Air Room Air 03/15/22 22:00 03/15/22 22:31 Temperature Temperature Source Pulse Rate 74 74 Pulse Rate [Right Brachial] Respiratory Rate 14 17 Blood Pressure 101/67 L 100/59 L Blood Pressure [Right Arm] Blood Pressure Mean [Right Arm] Blood Pressure Source [Right Arm] Blood Pressure Position [Right Arm] 02 Sat by Pulse Oximetry 96 97 Oxygen Delivery Method Room Air Room Air - Lab Data Lab results reviewed: Yes: I reviewed the patient's lab results. Lab Results 03/15/22 20:30: WBC 8.8, RBC 4.55, Hgb 15.0, Hct 44.8, MCV 98.5, MCH 33.0 H, MCHC 33.5, RDW 13.0, Plt Count 245, MPV 8.7, Neut % (Auto) 45.8, Lymph % (Auto) 43.5, [place] % (Auto) 4.8, Eos % (Auto) 2.7, Baso % (Auto) 3.2 H, Neut # (Auto) 4.0, Lymph # (Auto) 3.8, [place] # (Auto) 0.4, Eos # (Auto) 0.2, Baso # (Auto) 0.3 H 03/15/22 20:30: Sodium 137, Potassium 3.3 L, Chloride 102, Carbon Dioxide 27, Anion Gap 11.3, BUN 7, Creatinine 0.60, Estimated Creat Clear 93, Estimated GFR 113, Est GFR ( Amer) 137, Glucose 135 H, Calcium 9.2, Total Bilirubin 0.3, AST 27, ALT 16, Alkaline Phosphatase 47, Total Protein 7.4, Albumin 4.5, Globulin 2.9, Albumin/Globulin Ratio 1.6 03/15/22 20:54: Urine Color Yellow, Urine Appearance Clear, Urine pH 6.5, Ur Specific [place] <= 1.005, Urine Protein Negative, Urine Glucose (UA) Negative, Urine Ketones Negative, Urine Blood Negative, Urine Nitrate Negative, Urine Bilirubin Negative, Urine Urobilinogen 0.2, Ur Leukocyte Esterase Trace, Urine RBC None, Urine WBC Occasional, Ur Squamous Epith Cells 3-5, Urine Bacteria Trace 03/15/22 20:54: Urine HCG, Qual Negative 03/15/22 20:54: Urine Opiates Screen Negative, Urine Methadone Screen Negative, Ur Barbituates Screen Negative, Ur Phencyclidine Scrn Negative, Ur Amphetamines Screen Negative, U Benzodiazepines Scrn Negative, Urine Cocaine Screen Negative, U Marijuana (THC) Screen Negative Result diagrams: 03/15/22 20:30 03/15/22 20:30 Orders (Tests/Meds): ED MEDICATIONS Discontinued Medications Generic Name Dose Route Start Last Admin Trade Name Freq PRN Reason Stop Dose Admin Ketorolac Tromethamine 30 mg 03/15/22 21:56 03/15/22 21:57 Ketorolac 30mg/Ml Vial IV 03/15/22 21:57 30 mg ONCE ONE Administration - CT Data CT Scan: Head Time Received: 21:28 ED
[2022-03-15 21:27] LABS: Barbiturates Screen,Urine Negative ng/ml (<200)
[2022-03-15 21:28] LABS: Bacteria,Urine Trace /lpf; Benzodiazepines Screen,Urine Negative ng/ml (<200); WBC,Urine Occasional #/hpf (0-3)
[2022-03-15 21:29] LABS: Amphetamine/Metha Screen,Urine Negative ng/ml (<1000); Cannabinoid Screen,Urine Negative ng/ml (<50)
[2022-03-15 21:30] LABS: Cocaine Screen,Urine Negative ng/ml (<300)
[2022-03-15 21:31] LABS: Methadone Screen,Urine Negative ng/ml (<300); Opiate Screen,Urine Negative ng/ml (<300)
[2022-03-15 21:32] LABS: Phencyclidine Screen,Urine Negative ng/ml (<25)
[2022-03-15 21:33] VITALS: BP 105/66; PULSE 79; RESP 16; O2SAT 97
[2022-03-15 22:00] VITALS: BP 101/67; PULSE 74; RESP 14; O2SAT 96
[2022-03-15 22:31] VITALS: BP 100/59; PULSE 74; RESP 17; O2SAT 97
[2022-03-15 22:58] VITALS: BP 142/70; PULSE 79; RESP 19; TEMP 36.7; O2SAT 98
== END 2022-03-15 22:59 | disposition home or self-care (01) ==
PROVIDERS: Emergency Provider Emergency Medicine; PCP Emergency Medicine
DX: R51.9 Headache, unspecified (principal); F41.8 Other specified anxiety disorders; Z72.0 Tobacco use; Z88.5 Allergy status to narcotic agent
CPT/HCPCS: 70450; 71045; 80053; 80305; 81001; 81025; 85025; 96374; 99284

== ENCOUNTER → 2022-03-25 07:59 | Outpatient (CLI) | payer OTHER, SELFPAY ==
--- NOTE | 2022-03-25 08:01 | CA_ITS ---
APPROVED REPORT EXAM: Comprehensive 2D, Doppler, and color-flow Echocardiogram Wound Care Nurse: LINCOLN Salinas, RVS Ht: 5 ft 3 in Wt: 90lbs BSA: 1.38 BP: 98/62 mmHg Indications: Dizziness, Headaches, CP, Smoker, Palpitations Echo Enhancing Agent Comments: Technically limited exam due to extreme body habitus and breast implants 2D Dimensions IVSd 0.52 cm LVEF (Visual) 56.20 % PWd 0.57 cm LA Volume 19.90 mL LVDd 4.19 cm LA Volume Index 14.40 mL/m2 (M/F) 16-34 LVDs 2.97 cm Aortic Root 2.70 cm Left Atrium 1.88 cm LVOT 1.73 cm (M/F) 1.5-2.5 M-Mode Dimensions RVDd 1.39 cm (0.9-2.6) LA Diam 2.59 cm (1.9-4.0) LVDd 4.06 cm (3.5-5.7) Ao Diam 3.15 cm (2.0-3.7) LVDs 3.11 cm (3.5-5.7) IVSd 0.75 cm (0.6-1.1) PWd 0.58 cm (0.6-1.1) EF (Teich) 47.30% EPSs 0.58 cm FS 23.40% EDV (Teich) 72.50 mL TAPSE 3.04 (<1.7) ESV (Teich) 38.20 mL LV Diastology E Decel Time 263.00 (160-240 msec) E/A Ratio 2.01 MED E' 16.50 (< 7 cm/sec) MED A' 7.20 cm/s E'/MED E' Ratio 4.50 (>14) LAT E' 14.90 (<10 cm/sec) LAT A' 4.90 cm/s E/LAT E' Ratio 4.99 (>14) Aortic Valve LVOT Max 79.00 (70-110 cm/s) LVOT VTI 17.90 cm AoV Peak John. 120.00 (50-130 cm/s) AO Peak GR. 5.80 mmHg AO Mean GR. 2.90 (<5 mmHg) AO VTI 24.21 (18-25 cm) LOBO (VTI) 1.74 (2.5-4.5 cm2) Mitral Valve MV A Velocity 37.00 (40-130 cm/s) E/A Ratio 2.01 MV Decel. Time 263.00 (160-240 ms) Pulmonary Valve PV Peak Velocity 68.00 (50-150 cm/s) Tricuspid Valve TR P. Velocity 188.00 cm/s RAP Estimate 10.00 mmHg RVSP 24.10 mmHg Left Ventricle Left atrium is normal size, left ventricle is normal size, preserved left ventricular systolic function, estimated ejection fraction 55% with no regional wall motion abnormality, diastolic parameters are within normal range. Right Ventricle Right atrium and right ventricle are normal size and contractility. Aortic Valve Aortic valve is grossly normal there is no aortic stenosis or aortic insufficiency. Mitral Valve Mitral valve grossly normal, there is trace mitral regurgitation. Tricuspid Valve Tricuspid valve grossly normal, there is trace tricuspid regurgitation, tricuspid regurgitation jet velocity is inadequate for calculation of the right ventricular systolic pressure. Pulmonic Valve Pulmonic valve is poorly visualized. Great Vessels Aortic root is normal size. Inferior vena cava normal size with normal inspiratory collapse. Pericardium No significant pericardial effusion noted. Conclusion 1. Normal left ventricular size preserved left ventricular systolic function, estimated ejection fraction 55% with no regional wall motion abnormality, diastolic parameters are within normal range. 2. Trace mitral and tricuspid regurgitation. 3. No significant pericardial effusion. 4. Inferior vena cava normal size with normal spectral collapse. Electronically signed by : Lance Jones MD 03/25/2022 16:16:44
--- NOTE | 2022-03-25 08:38 | MR_ITS ---
FINAL REPORT CLINICAL HISTORY: headaches x 1 week ago , headaches , slurred speech and loss of funtion in legs headaches since episode and blurred vision 8ml prohance given FINDINGS: Multiplanar MR imaging of the brain was performed without and with contrast. There is no evidence of intracranial hemorrhage or mass. No abnormal extra-axial fluid collection is seen. The ventricular size is within normal limits. There is no evidence of shift of the midline structures. The posterior fossa and brainstem have an unremarkable appearance. No area of abnormal restricted diffusion is identified. No abnormal contrast enhancement is seen. Normal major vessel vascular flow voids are noted. IMPRESSION: No acute intracranial abnormality identified. Reviewed, Interpreted and Dictated by Mansoor Dunlap III, MD Transcribed by Denilson Chiang Authenticated and . [facility]
[2022-03-25 10:38] LABS: Hemoglobin A1C 5.2 % (4.0-6.0)
[2022-03-25 12:01] LABS: Vitamin B12 250 pg/mL (239-931)
[2022-03-25 12:29] LABS: Folate 7.09 ng/mL
== END ==
PROVIDERS: PCP Emergency Medicine; Referring Provider Nurse Practitioner Family; Visit Provider Emergency Medicine
DX: R07.9 Chest pain, unspecified (principal); R42 Dizziness and giddiness; R00.2 Palpitations; F39 Unspecified mood [affective] disorder; R51.9 Headache, unspecified; I95.9 Hypotension, unspecified; G25.81 Restless legs syndrome; H57.02 Anisocoria; R47.9 Unspecified speech disturbances; Z68.1 Body mass index [BMI] 19.9 or less, adult
CPT/HCPCS: 36415; 70553; 82607; 82728; 82746; 83036; 84443; 93270; 93306; A9576

== ENCOUNTER 2022-09-19 21:29 | Emergency (ER) | payer OTHER, SELFPAY ==
[2022-09-19 21:31] VITALS: BP 94/60; PULSE 76; RESP 16; TEMP 36.6; O2SAT 96; BMI 15.3
--- NOTE | 2022-09-19 21:42 | CT_ITS ---
PROCEDURE INFORMATION: Exam: CT Abdomen And Pelvis With Contrast Exam date and time: 09/19/2022 10:01 PM Age: 36 years old Clinical indication: Abdominal pain; Localized; Right lower quadrant (rlq); Patient HX: Iud placed 2 years ago; Additional info: Rlq pain TECHNIQUE: Imaging protocol: Computed tomography of the abdomen and pelvis with contrast. Radiation optimization: All CT scans at this facility use at least one of these dose optimization techniques: automated exposure control; mA and/or kV adjustment per patient size (includes targeted exams where dose is matched to clinical indication); or iterative reconstruction. Contrast material: ISOVUE; Contrast volume: 75 ml; Contrast route: IV; COMPARISON: ABDPELW/O CT ABD PELVIS W/O CONTRAST 09/05/2017 8:15 PM FINDINGS: Lungs: Lung bases are clear. Pleural spaces: No pleural effusion. Heart: The visualized heart is normal. No pericardial effusion. Liver: The liver has normal size and contour. Gallbladder and bile ducts: Gallbladder is decompressed but otherwise unremarkable. Pancreas: The pancreas is unremarkable. Spleen: The spleen is unremarkable. Adrenal glands: The adrenal glands are normal. Kidneys and ureters: The kidneys enhance symmetrically without hydronephrosis. The ureters have normal course and caliber without stone. Stomach and bowel: The stomach is normal. The small and large bowel have normal course and caliber. No evidence of bowel obstruction. No pericolonic inflammatory stranding. Fecalization of the small bowel. Appendix: The appendix is normal. Intraperitoneal space: No significant peritoneal free fluid. No free peritoneal air. Vasculature: No abdominal aortic aneurysm. Lymph nodes: No suspicious adenopathy by size criteria. Urinary bladder: The bladder is normal without focal wall thickening. Reproductive: Normal. IUD appears appropriately positioned. Bones/joints: No acute fracture. Soft tissues: Unremarkable. IMPRESSION: 1. The appendix is normal. 2. An IUD appears appropriately position within the endometr space. 3. No acute intra-abdominal/pelvic abnormality.
[2022-09-19 21:48] LABS: Microscopic, Urine URINE MICROSCOPIC (MICROSCOPIC)
[2022-09-19 21:51] LABS: Appearance,Urine CLEAR (Clear); Bilirubin,Urine Negative (Negative); Blood, Urine Negative (Negative); Color,Urine STRAW (Yellow); Glucose,Urine (UA) Negative (Negative); Ketones,Urine Negative (Negative); Leukocyte Esterase,Urine Negative (Negative); Nitrate,Urine Negative (Negative); Protein,Urine Negative (Negative); Specific Gravity, Urine 1.015 (1.005-1.030); Urobilinogen,Urine 0.2 EU/dl (0.2)
[2022-09-19 21:56] LABS: Urine Pregnancy, HCG Qual. Negative (Negative)
[2022-09-19 22:15] LABS: Alanine Aminotransferase 11 U/L (12-78); Albumin Level 4.4 g/dl (3.5-5.0); Albumin/Globulin Ratio 1.8 (1.1-1.8); Alkaline Phosphatase 47 U/L (38-126); Amylase 91 U/L (30-110); Aspartate Amino Transferase 23 U/L (14-36); Bilirubin,Total < 0.1 mg/dl (0.2-1.3); Blood Urea Nitrogen 10 mg/dl (7-17); Calcium 9.5 mg/dl (8.4-10.2); Carbon Dioxide 29 mmol/L (22.0-30.0); Chloride 105 mmol/L (98-107); Creatinine Clearance Estimated 71 mL/min (50-200); Estimated Glomerular Filt Rate 95 ml/min (>60); GFR (African American) 115 ML/MIN (>60); Globulin 2.5 g/dL (1.3-3.2); Glucose 89 mg/dl (74-100); Lactic Acid 0.8 mmol/L (0.7-2.1); Lipase 94 U/L (23-300); Sodium 139 mmol/L (136-145); Total Protein,Serum 6.9 g/dl (6.3-8.2)
[2022-09-19 22:15] LABS: Amorphous Sediment,Urine Trace /lpf; Bacteria,Urine Trace /lpf; Squamous Epithelial Cell,Urine Occasional #/hpf (0-5)
[2022-09-19 22:16] LABS: Basophils # 0.2 K/mm3 (0-0.2); Basophils % 1.7 % (0.1-2.0); Eosinophils # 0.2 K/mm3 (0.0-0.4); Eosinophils % 2.5 % (0.1-12.0); Hematocrit 42.8 % (37.0-47.0); Lymphocytes # 3.7 K/mm3 (0.7-4.5); Lymphocytes % 41.4 % (10-50); Mean Corpuscular HGB Conc 32.8 g/dL (31.8-35.4); Mean Corpuscular Hemoglobin 32.7 pg (27.0-31.2); Mean Corpuscular Volume 99.7 fl (81-99); Mean Platelet Volume 8.3 fl (7.4-10.4); Monocytes # 0.4 K/mm3 (0.1-1.0); Monocytes % 3.9 % (1.7-9.3); Neutrophils # 4.5 K/mm3 (1.8-7.8); Neutrophils % 50.5 % (37.0-80.0); Platelet Count 194 K/mm3 (142-424); Red Blood Count 4.29 M/mm3 (4.20-5.40); Red Cell Distribution Width 12.7 % (11.5-17.5); White Blood Count 8.9 K/mm3 (4.8-10.8)
[2022-09-19 22:34] LABS: C-Reactive Protein < 0.3 mg/L (0-4); Procalcitonin < 0.030 ng/mL (0.0-2.0)
[2022-09-19 22:39] LABS: Erythrocyte Sedimentation Rate 7 mm/hr (0-20)
--- NOTE | 2022-09-20 00:23 | HMH.EDABDPAI ---
Discharge Plan Disposition Patient Disposition: Home, Self-Care Prescriptions Prescriptions: New ketorolac 10 mg tablet 10 mg PO TID PRN (Reason: pain) Qty: 7 0RF No Action clonazepam [Klonopin] 0.5 mg tablet 0.5 mg PO TID PRN gabapentin 300 mg capsule 300 mg PO TID PRN Ubrelvy 100 mg tablet 100 mg PO DAILY PRN (Reason: headache) Qty: 10 0RF cyproheptadine 4 mg tablet See Rx Instructions PO HS Qty: 60 1RF Rx Instructions: 4mg (1 tablet) by mouth at bedtime for one week. If ongoing headaches without intolerance, can increase to 8mg (2 tablets) by mouth at bedtime citalopram 10 mg tablet See Rx Instructions .ROUTE .COMPLEX Qty: 30 0RF Dose Instruction: TAKE ONE TABLET BY MOUTH ONCE A DAY Rx Instructions: TAKE ONE TABLET BY MOUTH ONCE A DAY Referrals Follow up/Referrals: Scottie Thompson MD [Primary Care Provider] - See instructions Clinical Impressions Clinical Impression: Abdominal pain Instructions Patient Instructions: DI for Acute Abdominal Pain Discharge ED Provider: Scottie Thompson Abdominal Pain HPI General Chief Complaint: Abdominal Pain Stated Complaint: RT side abd pain Time Seen by Provider: 09/19/22 21:40 Mode of Arrival: Wheelchair Source of Information: Patient and Medical Record Limitations: No Limitations Description of Symptoms (Recalled from ER Triage Doc. by RN): pt c/o RLQ pain that started today. pt denies n/v/d History of Present Illness HPI narrative: acute onset of rt lower abd pain tonight w/ fever or rash and no new vag d/c and no bleeding complaint: abdominal pain Onset (ago): hour(s) Consistency: intermittent Location: RLQ Severity: moderate Quality: sharp Associated symptoms: denies other symptoms Related Data Home Medications Medication Instructions Recorded Confirmed clonazepam 0.5 mg tablet (Klonopin) 0.5 mg PO TID PRN 03/16/22 03/19/22 gabapentin 300 mg capsule 300 mg PO TID PRN 03/16/22 03/19/22 Previous Rx's Medication Instructions Recorded ubrogepant 100 mg tablet (Ubrelvy) 100 mg PO DAILY PRN headache #10 03/16/22 tabs cyproheptadine 4 mg tablet See Rx Instructions PO HS headache 03/19/22 per DIAZ headache guidelines #60 tabs citalopram 10 mg tablet See Rx Instructions .Route 04/14/22 .COMPLEX #30 tabs ketorolac 10 mg tablet 10 mg PO TID PRN pain #7 tabs 09/20/22 Allergies Allergy/AdvReac Type Severity Reaction Status Date / Time codeine [CODEINE] Allergy Mild Verified 03/16/22 15:20 [facility] Disclaimer: The information contained in this section may have been updated after the patient was seen, as this information can be updated by other users. Social History Smoking Status: Current every day smoker tobacco type: cigarettes packs per day: 1 alcohol intake: never substance use type: denies use current occupational status: unemployed Travel in the last 8 weeks: None household members: spouse and children housing: house ROS Obtained: Yes All systems reviewed & no additional complaints except as documented Physical Exam General General appearance: alert Head Head exam: normocephalic Eye Eye exam: Present PERRL and EOMI ENT ENT exam: Present mucous membranes moist Neck Neck exam: Present trachea midline Respiratory Respiratory exam: Present normal lung sounds bilaterally; Absent respiratory distress Cardiovascular Cardiovascular exam: Present regular rate Abdominal Exam Abdominal exam: Present soft and tenderness; Absent guarding or rebound Abdominal tenderness: Present RLQ and mild Back Exam Back exam: Absent CVA tenderness (R) Neurological Exam Neurological exam: Present alert, oriented X3 and CN II-XII intact; Absent motor sensory deficit Psychiatric Psychiatric exam: Present normal affect Skin Skin exam: Absent rash Medical Decision Making Medical Records Medical records reviewed: Yes I reviewed the patient's medical records. Jorge Inquir
[2022-09-20 00:32] VITALS: BP 90/57; PULSE 62; RESP 16; TEMP 36.6; O2SAT 98
== END 2022-09-20 00:42 | disposition home or self-care (01) ==
PROVIDERS: Emergency Provider Emergency Medicine; PCP Emergency Medicine
DX: R10.31 Right lower quadrant pain (principal); Z88.6 Allergy status to analgesic agent
CPT/HCPCS: 74177; 80053; 81001; 81025; 82150; 83605; 83690; 84145; 85025; 85651; 86140; 87040; 96365; 96375; 99284; Q9967

== ENCOUNTER 2022-09-28 15:29 | Emergency (ER) | payer OTHER, SELFPAY ==
[2022-09-28 17:00] VITALS: BP 116/76; PULSE 72; RESP 19; TEMP 36.9; O2SAT 100; BMI 15.7
--- NOTE | 2022-09-28 17:55 | EXP.UTC ---
Discharge Plan Disposition Patient Disposition: Home, Self-Care Condition: Good Prescriptions Prescriptions: No Action clonazepam [Klonopin] 0.5 mg tablet 0.5 mg PO TID PRN gabapentin 300 mg capsule 300 mg PO TID PRN Ubrelvy 100 mg tablet 100 mg PO DAILY PRN (Reason: headache) Qty: 10 0RF cyproheptadine 4 mg tablet See Rx Instructions PO HS Qty: 60 1RF Rx Instructions: 4mg (1 tablet) by mouth at bedtime for one week. If ongoing headaches without intolerance, can increase to 8mg (2 tablets) by mouth at bedtime citalopram 10 mg tablet See Rx Instructions .ROUTE .COMPLEX Qty: 30 0RF Dose Instruction: TAKE ONE TABLET BY MOUTH ONCE A DAY Rx Instructions: TAKE ONE TABLET BY MOUTH ONCE A DAY ketorolac 10 mg tablet 10 mg PO TID PRN (Reason: pain) Qty: 7 0RF Referrals Follow up/Referrals: Scottie Thompson MD [Primary Care Provider] - See instructions Activity Restrictions/Add. Instructions Additional Instructions/Restrictions: *Monitor Temp, Over the counter Motrin or Tylenol as directed/as needed Tylenol every 4 hours and Motrin every 6 hours (as long as your family doctor has told you that you can take it) for fever or pain. and straight to ER if unable to lower temp less than 101.0 after medication given *Warm salt water gargles may help to soothe the throat *Throat Lozenges? *Warm fluids like tea with honey may help to soothe the throat? *Sleep elevated *Humidifier/Vaporizer Follow up IMMEDIATELY for new or worsening symptoms or no Noticeable improvement over the next 48-72 hours. 911 for difficulty breathing or swallowing You were tested for today for Upper Respiratory Panel with COVID19 your test result should be back in the next 24-48 hours, you may check your Results on the [facility] Clinical Impressions Clinical Impression: Viral syndrome Stand Alone Forms Stand Alone Forms: Work/School Release Instructions Patient Instructions: COVID-19 Viral Test, DI for COVID-19 (Suspected or Confirmed ) Discharge ED Provider: Sheridan Sanders [facility] [place] HPI General Stated complaint: pos covid 09/26, sore throat, chills, diarrhea Mode of Arrival: Ambulatory Source of Information: Patient Limitations: No Limitations Time Seen by Provider: 09/28/22 17:55 Description of Symptoms (Recalled from Triage Doc. by RN): PATIENT C/O SORE THROAT AND REPORTS A POSITIVE AT HOME COVID TEST HEENT Symptoms (Recalled from RN notes): Yes Resp Symptoms (Recalled from RN notes): No Skin Symptoms (Recalled from RN notes): No MS Symptoms (Recalled from RN notes): No Functional Status (Recalled from RN notes): WNL History of Present Illness Provider Complaint: Patient states that she has not felt well for several days States that she had some diarrhea and body aches then started with sore throat and chills States that she took an at home COVID test and it was positive so work made her come in and get tested here Related Data Home Medications Medication Instructions Recorded Confirmed clonazepam 0.5 mg tablet (Klonopin) 0.5 mg PO TID PRN 03/16/22 03/19/22 gabapentin 300 mg capsule 300 mg PO TID PRN 03/16/22 03/19/22 Previous Rx's Medication Instructions Recorded ubrogepant 100 mg tablet (Ubrelvy) 100 mg PO DAILY PRN headache #10 03/16/22 tabs cyproheptadine 4 mg tablet See Rx Instructions PO HS headache 03/19/22 per DIAZ headache guidelines #60 tabs citalopram 10 mg tablet See Rx Instructions .Route 04/14/22 .COMPLEX #30 tabs ketorolac 10 mg tablet 10 mg PO TID PRN pain #7 tabs 09/20/22 Allergies Allergy/AdvReac Type Severity Reaction Status Date / Time codeine [CODEINE] Allergy Mild Verified 03/16/22 15:20 Worker's Comp Is this a Worker's Comp case?: No [facility] Disclaimer: The information contained in this section may have been updated after the patient was seen, as this information can be updated by other users. Medi
[2022-09-28 18:01] VITALS: BP 116/76; PULSE 72; RESP 19; TEMP 36.9; O2SAT 100
== END 2022-09-28 18:39 | disposition home or self-care (01) ==
PROVIDERS: Emergency Provider Nurse Practitioner; PCP Emergency Medicine
DX: U07.1 COVID-19 (principal)
CPT/HCPCS: 99212; C9803; G0463; U0003; U0005

== ENCOUNTER 2024-01-26 13:12 | Outpatient (CLI) | payer OTHER, SELFPAY ==
[2024-01-26 13:34] LABS: Basophils # 0.1 K/mm3 (0-0.2); Eosinophils # 0.2 K/mm3 (0.0-0.4); Eosinophils % 2.3 % (0.1-12.0); Hematocrit 44.6 % (37.0-47.0); Hemoglobin 14.9 g/dL (12.2-16.2); Lymphocytes % 30.6 % (10-50); Mean Corpuscular HGB Conc 33.4 g/dL (31.8-35.4); Mean Corpuscular Hemoglobin 34.3 pg (27.0-31.2); Mean Corpuscular Volume 102.6 fl (81-99); Mean Platelet Volume 8.7 fl (7.4-10.4); Monocytes # 0.4 K/mm3 (0.1-1.0); Monocytes % 6.3 % (1.7-9.3); Neutrophils # 3.9 K/mm3 (1.8-7.8); Neutrophils % 59.8 % (37.0-80.0); Platelet Count 175 K/mm3 (142-424); Red Blood Count 4.35 M/mm3 (4.20-5.40); Red Cell Distribution Width 12.2 % (11.5-17.5); White Blood Count 6.5 K/mm3 (4.8-10.8)
[2024-01-26 14:18] LABS: Anion Gap 9.3 mEq/L (5-15); Blood Urea Nitrogen 8 mg/dl (7-17); Calcium 9.3 mg/dl (8.4-10.2); Carbon Dioxide 26 mmol/L (22.0-30.0); Chloride 107 mmol/L (98-107); Estimated Glomerular Filt Rate 112 ml/min (>60); GFR (African American) 135 ML/MIN (>60); Glucose 79 mg/dl (74-100); Potassium 4.3 mmoL/L (3.5-5.1); Sodium 138 mmol/L (136-145)
[2024-01-26 14:45] LABS: HCG,Quantitative < 2 mIU/ml (0-5.42)
== END 2024-01-26 23:59 | disposition home or self-care (01) ==
PROVIDERS: Visit Provider Nurse Practitioner Obstetrics & Gynecology
DX: Z01.812 Encounter for preprocedural laboratory examination (principal); R87.619 Unspecified abnormal cytological findings in specimens from cervix uteri
CPT/HCPCS: 36415; 80048; 84702; 85025

== ENCOUNTER 2024-01-27 06:00 | Day surgery (SDC) | payer OTHER, SELFPAY ==
[2024-01-27] VITALS (12 sets, daily range): BP systolic 87–124; BP diastolic 49–74; PULSE 67–79; RESP 18–20; TEMP 36.2–40; O2SAT 96–99; BMI 15.3
[2024-01-27] MEDS: LACTATED RINGERS 1000ML 1,000 ML 25 ML IV (06:34)
--- NOTE | 2024-01-27 06:48 | P.PNANES_ITS ---
[facility] Disclaimer: The information contained in this section may have been updated after the patient was seen, as this information can be updated by other users. Medical History Depression Anxiety Migraine Surgical History History of section Family History (Updated 01/27/24 @ 06:26 by June Wade RN) Other Cancer Diabetes Family history of emphysema Social History (Updated 01/27/24 @ 06:27 by June Wade RN) Smoking Status: Current every day smoker tobacco type: cigarettes packs per day: 1 alcohol intake: never substance use type: denies use current occupational status: unemployed Travel in the last 8 weeks: None household members: spouse and children housing: house [facility] Anesthesia Checklist Patient Identification Patient Identification: Arm Band and Family Structural Data Admitted From: Home Planned Operative Procedure/s: Cone Biopsy Consent for Planned Operative Procedure(s) Verified: Yes Verified Documents: Surgical Consent and History and Physical NPO Status Verified Time NPO: 00:00 Additional verifications Patient : No Anesthesia Reactions: No Hx Blood Transfusions: No Blood Transfusion Reaction: No Cephalosporin Allergy: No Previous Colonoscopy: No Airway Assessment Mallampati Score:: Class II C-Spine Mobility Assessed: Yes TMJ Mobility Assessed: Yes Dentition: Edentulous Neurological Assessment Level of Consciousness: Awake, Alert, Appropriate, Follows Commands and Restless Hx Seizures: Yes Numbness or tingling in extremities: No Anesthesia Plan ASA Class: II Anesthesia Type: General Preoperative Comments Pre-Operative Comments: Last seizure one year ago.
[2024-01-27] MEDS: CEFAZOLIN SODIUM 1 GM in 0.9 % SODIUM CHLORIDE 50 ML IV (07:23)
[2024-01-27] MEDS: LIDOCAINE 1% W/EPI 1:100,000 20ML VIAL 20 ML (07:38)
--- NOTE | 2024-01-27 07:56 | P.OP_ITS ---
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 As result of that she was offered cone biopsy. The risk and benefits of surgery were discussed with patient prior to surgery Operative findings:: Cervix appeared normal. There was a Mirena IUD in place. The strings were present. Operative note:: She was taken the operating room where LMA anesthesia was found be adequate. She was prepped draped normal sterile fashion lithotomy position. We inspect was placed in vagina and the antilipid the cervix was grasped with a tenaculum. Using 1% Xylocaine with epinephrine I injected 20 cc circumferentially about the cervix. I then took a knife with 11 blade and removed a cylindrical portion of the central cervix. I was careful to avoid the Mirena strings. The tissue was sent to pathology. I then cauterized the exocervix. This was followed by placing 4 sutures from outside inside outside around the outside part of the cervix. I then applied Monsel solution to the endocervix. I did not perform an ECC since she had a Mirena IUD in place. She tolerated procedure well and was taken the recovery room in next condition. All sponge, instrument and needle counts were correct. The estimated blood was less then to 5 cc. Condition: stable Disposition: PACU Specimens:: Code cone biopsy of the cervix Complications:: None
--- NOTE | 2024-01-27 08:04 | EXP.ANES.I ---
[facility] Anesthesia Record Part I Anesthesia Record I Intake, IV Amount: 250 Hydration: Adequate Estimated blood loss (mL): 18 Urine output (mL): 0 Blood Products used (#): none Blood Pressure: 124/74 SaO2: 98 Pulse Rate: 71 Airway Patency: Patent Respiratory Rate: 20 Temperature: 99 F Patient is:: Drowsy and Stable Stable to PACU at:: 07:55
[2024-01-27] MEDS: HYDROMORPHONE 2MG/ML SYRINGE 0.5 MG IV ×2 (08:17→08:35)
[2024-01-28 10:54] VITALS: BP 109/70; PULSE 70; RESP 20; TEMP 37.2; O2SAT 99
--- NOTE | 2024-01-28 10:54 | P.PNANES_ITS ---
[facility] Anesthesia Record Part II Anesthesia Record Part II Discharge Time: 08:45 Destination: Surgical Day Care (OP Surgery) PACU nurse assessment reviewed?: Yes Patient Condition:: Good Anesthesia Complications:: None Swallowing reflex intact?: Yes Airway Patency: Patent Cyanosis?: No Blood Pressure: 109/70 SaO2: 99 Respiratory Rate: 20 Pulse Rate: 70 Temperature: 99 F Mental Status: Alert & Oriented Pain level:: 2 Nausea and/or vomitting:: None Intake, IV Amount: 0 Hydration: Adequate
== END 2024-01-27 09:03 | disposition home or self-care (01) ==
PROVIDERS: Visit Provider Nurse Practitioner Obstetrics & Gynecology
PROC: 0UBC7ZZ Excision of Cervix, Via Natural or Artificial Opening (ICD-10-PCS; CPT 57520; principal; 2024-01-27 07:30)
DX: N87.1 Moderate cervical dysplasia (principal); Z97.5 Presence of (intrauterine) contraceptive device
CPT/HCPCS: 57520; 96374; J2405

== ENCOUNTER 2024-06-08 10:55 | Outpatient (CLI) | payer SELFPAY ==
--- NOTE | 2024-06-08 11:01 | US_ITS ---
PROCEDURE: US TRANSVAGINAL CLINICAL INDICATION: pelvic pain COMPARISON: No exams were available for comparison FINDINGS: Transvaginal sonographic images of the pelvis were obtained. UTERUS: 7.7 cm x 4.6 cmx 3.9 cm with a combined endometrial thickness of 5.8mm. There is an IUD within the endometrial cavity in the correct position. LEFT OVARY: [id number] with a volume of 10.4ml. There appears to be a collapsing follicle/corpus luteum measuring 2.2 cm x 1.2 cm x 1.2 cm. RIGHT OVARY: 3cmx [id number] with a volume of 7.1ml. There are several small peripheral follicles. The largest measures 1.2 cm. Both ovaries are seen and appear normal. Doppler flow to both ovaries are seen. There is a small amount of fluid in the cul-de-sac. IMPRESSION: 1. Anteverted uterus normal in shape and size. The endometrium is thin. 2. There is an IUD within the uterine cavity in the correct position. 3. Both ovaries are seen and appear normal. The left ovary has what appears to be a collapsing corpus luteum indicating recent ovulation. 4. There is a small amount of fluid in the cul-de-sac. Dictated by: Cornelius Estrada MD 06/08/2024 14:36 Cornelius Estrada MD in OV 06/08/2024 14:36
== END 2024-06-08 23:59 | disposition home or self-care (01) ==
PROVIDERS: Visit Provider Nurse Practitioner Obstetrics & Gynecology
DX: R10.2 Pelvic and perineal pain (principal)
CPT/HCPCS: 76830